=== PATIENT | female | born 1965 | race Hispanic/Latino ===

== ENCOUNTER 2020-10-17 15:38 | Emergency (ER) | payer SELFPAY ==
[~2020-10-17] VITALS: Ht 154.9 cm; Wt 86.2 kg
[2020-10-17] MEDS ORDERED: ACETAMINOPHEN 325 MG TAB PO ONE (16:00)
== END 2020-10-17 17:05 | disposition home or self-care (01) ==
LOC: ER 16:00
DX: U07.1 COVID-19 (principal); R50.9 Fever, unspecified; R05 Cough; M54.9 Dorsalgia, unspecified; G89.29 Other chronic pain
CPT/HCPCS: 71045; 99284

== ENCOUNTER → 2024-11-19 | Day surgery (SDC) | payer OTHER, SELFPAY ==
[~2024-11-19] MED LIST: ACETAMINOPHEN 1000 MG/100 ML 100 ML IV ONE; BUPIVACAINE LIPOSOME/PF 266 MG/20 ML IJ ONE; CYCLOBENZAPRINE10 MG PO; DEXAMETHASONE SOD PHOS INJ 4 MG/ML SDV ONE; DEXMEDETOMIDINE HCL 2 ML ONE; FAMOTIDINE 20 MG/2 ML VIAL IV ONE; FENTANYL CITRATE/PF 100MCG/2 ML INJ ONE; HYDROCODONE/APAP 7.5MG-325MG 1 EA TAB ONE; IBUPROFEN800 MG PO; LIDOCAINE HCL 2% LOCAL INJ 5 ML SDV VIAL INJ ONE; MIDAZOLAM HCL 2 MG/2 ML VIAL ONE; ONDANSETRON HCL INJ 2MG/ML 2ML 2 MG/ML VIAL ONE; PAROXETINE HCL10 MG PO; PROPOFOL IV EMULSION 10 MG/ML 20 ML VIAL ONE; ROPIVACAINE/EPI/CLONIDINE/KET 50 ML SYRINGE INJ ONE; SEVOFLURANE INHAL SOLN 250 ML PEN BTL ONE; SODIUM CHLORIDE 0.9% 100 ML ONE; Vancomycin IV 1 GM VIAL ONE
[2024-11-19] MEDS: CEFAZOLIN SODIUM 2 GM ONE (06:08)
[2024-11-19] MEDS: LACTATED RINGER'S 1,000 ML ONE (06:10)
[2024-11-19 09:56] VITALS: TEMP 97.6
[2024-11-19] MEDS: FENTANYL CITRATE/PF 100MCG/2 ML INJ ONE (10:30)
[2024-11-19 11:30] VITALS: BP 123/69; PULSE 70; RESP 18; O2SAT 99
[2024-11-19] MEDS: HYDROCODONE/APAP 7.5MG-325MG 1 EA TAB PO ONE (11:30)
== END | disposition home or self-care (01) ==
LOC: OR 05:26
PROVIDERS: ATTEND Orthopaedic Surgery Sports Medicine
DX: M17.11 Unilateral primary osteoarthritis, right knee (principal); S83.231A Complex tear of medial meniscus, current injury, right knee, initial encounter; M21.161 Varus deformity, not elsewhere classified, right knee; M85.9 Disorder of bone density and structure, unspecified; E66.01 Morbid (severe) obesity due to excess calories; G89.29 Other chronic pain; F32.A Depression, unspecified; W19.XXXA Unspecified fall, initial encounter; Z01.810 Encounter for preprocedural cardiovascular examination; Z79.1 Long term (current) use of non-steroidal anti-inflammatories (NSAID); Z79.899 Other long term (current) drug therapy; Z68.41 Body mass index [BMI] 40.0-44.9, adult
CPT/HCPCS: 27446; 73560; 93005; 97110; 97116; 97161; 97530; C1713; C9290; J0131; J1100; J2003; J2250; J2405; J2704; J3010; J3370; J7050; J7121

== ENCOUNTER 2025-01-03 15:00 | Outpatient (RCR) | payer OTHER ==
[~2025-01-03 15:00] MED LIST changes: -ACETAMINOPHEN 1000 MG/100 ML 100 ML IV ONE; -BUPIVACAINE LIPOSOME/PF 266 MG/20 ML IJ ONE; -DEXAMETHASONE SOD PHOS INJ 4 MG/ML SDV ONE; -DEXMEDETOMIDINE HCL 2 ML ONE; -FAMOTIDINE 20 MG/2 ML VIAL IV ONE; -FENTANYL CITRATE/PF 100MCG/2 ML INJ ONE; -HYDROCODONE/APAP 7.5MG-325MG 1 EA TAB ONE; -LIDOCAINE HCL 2% LOCAL INJ 5 ML SDV VIAL INJ ONE; -MIDAZOLAM HCL 2 MG/2 ML VIAL ONE; -ONDANSETRON HCL INJ 2MG/ML 2ML 2 MG/ML VIAL ONE; -PROPOFOL IV EMULSION 10 MG/ML 20 ML VIAL ONE; -ROPIVACAINE/EPI/CLONIDINE/KET 50 ML SYRINGE INJ ONE; -SEVOFLURANE INHAL SOLN 250 ML PEN BTL ONE; -SODIUM CHLORIDE 0.9% 100 ML ONE; -Vancomycin IV 1 GM VIAL ONE
== END 2025-01-06 ==
LOC: PT 15:00
PROVIDERS: ATTEND Orthopaedic Surgery Sports Medicine
DX: M23.91 Unspecified internal derangement of right knee (principal)